=== PATIENT | female | born 1975 | race Caucasian/White ===

== ENCOUNTER 2017-02-08 22:58 | Emergency (ER) | payer OTHER ==
[2017-02-08 23:05] VITALS: BP 159/92; PULSE 99; TEMP 98.5; BMI 40.2
--- NOTE | 2017-02-09 00:31 | PDOC ---
History of Present Illness - History of Present Illness Initial Comments: 02/09/17 00:38 Patient is a 41 year old female with no significant medical hx who is presenting to the ED with scattered welts to her extremities for the past few months. The patient states shes been having intermittent breakouts of welts and hives that are red and itching. She is reporting large, itching welts beneath her upper arms bilaterally at this time, but have also appeared scattered throughout her body in the past. The patient denies any known allergies. Denies new detergents, foods, clothing, or soaps. Denies any fever or chills. <Emma Osborne - Last Filed: 02/09/17 00:38> <Lizbeth Hodge - Last Filed: 02/09/17 00:42> - General Chief Complaint: Rash Stated Complaint: RASH Time Seen by Provider: 02/08/17 23:34 Past History <Emma Osborne - Last Filed: 02/09/17 00:38> - Past Medical History Anemia: Yes (IN THE PAST) Asthma: No Cancer: No Cardiac Disorders: No CVA: No COPD: No CHF: No Dementia: No Diabetes: No GI Disorders: No Disorders: No HTN: No Hypercholesterolemia: No Liver Disease: No Seizures: No Thyroid Disease: No - Surgical History Abdominal Surgery: No Appendectomy: No Cardiac Surgery: No Cholecystectomy: No Lung Surgery: No Neurologic Surgery: No Orthopedic Surgery: No - Psycho/Social/Smoking Cessation Hx Suicidal Ideation: No Smoking History: Never smoked Hx Alcohol Use: No Drug/Substance Use Hx: No Substance Use Type: None Hx Substance Use Treatment: No <Lizbeth Hodge - Last Filed: 02/09/17 00:42> - Past Medical History Allergies/Adverse Reactions: Allergies Allergy/AdvReac Type Severity Reaction Status Date / Time No Known Drug Allergies Allergy Verified 02/08/17 23:02 Home Medications: Ambulatory Orders Buspirone HCl [Buspar -] 5 mg PO DAILY 02/18/15 Meloxicam [Mobic -] 15 mg PO DAILY 02/18/15 Methylprednisolone [Medrol Dose [place]] 4 mg PO ASDIR #21 tablet 02/09/17 Review of Systems - Review of Systems Comments:: 02/09/17 00:40 CONSTITUTIONAL: Absent: fever, no chills, no fatigue EYES: Absent: visual changes ENT: Absent: ear pain, no sore throat CARDIOVASCULAR: Absent: chest pain, no palpitations RESPIRATORY: Absent: cough, no SOB GI: Absent: abdominal pain, no nausea, no vomiting, no constipation, no diarrhea GENITOURINARY: Absent: dysuria, no frequency, no hematuria MUSKULOSKELETAL: Absent: back pain, no arthralgia, no myalgia SKIN: Present: scattered red itching welts and urticaria NEURO: Absent: headache <Emma Osborne - Last Filed: 02/09/17 00:38> *Physical Exam - Vital Signs Last Vital Signs Temp Pulse Resp BP Pulse Ox 98.5 F 99 H 18 159/92 99 02/08/17 23:03 02/08/17 23:03 02/08/17 23:03 02/08/17 23:03 02/08/17 23:03 - Physical Exam Comments: 02/09/17 00:40 GENERAL: Well-appearing, well-nourished. No apparent distress. HEENT: Normocephalic, atraumatic. PERRL, EOM intact. CARDIOVASCULAR: Normal S1, S2. Regular rate and rhythm. PULMONARY: Clear to auscultation bilaterally. ABDOMEN: Soft, non-distended, non-tender. EXTREMITIES: Normal ROM in all four extremities. No gross deformities. SKIN: Warm, dry. Large welts that are raised and erythematous with areas of sharp demarcation on extremities. No vesicles, no weeping lesions, no signs of indurated cellulitis, no streaking, no purulence. NEUROLOGICAL: No focal neurological deficits. <Emma Osborne - Last Filed: 02/09/17 00:38> - Vital Signs Last Vital Signs Temp Pulse Resp BP Pulse Ox 98.5 F 99 H 18 159/92 99 02/08/17 23:03 02/08/17 23:03 02/08/17 23:03 02/08/17 23:03 02/08/17 23:03 <Lizbeth Hodge - Last Filed: 02/09/17 00:42> *DC/Admit/Observation/Transfer - Attestations Scribe Attestion: 02/09/17 00:42 Documentation prepared by Emma Osborne, acting as medical lab technician for Lizbeth Hodge MD. <Emma Osborne - Last Filed: 02/09/17 00:38> <Lizbeth Hodge - Last Filed: 02/09/17 00:42> Diagnosis at time of Disposition: Acute urticaria, Hives Hypersensitivity Qualifiers: Encounter type: initial encounter Qualified Code(s): T78.40XA - Allergy, unspecified, initial encounter - Discharge Dispostion Disposition: HOME - Prescriptions Prescriptions: Methylprednisolone [Medrol Dose [place]] 4 mg PO ASDIR #21 tablet - Referrals Referrals: Lay Bains [Primary Care Provider] - Mar Roberts MD [Staff Physician] - - Patient Instructions Printed Discharge Instructions: DI for General Allergic Reactions, DI for Itching, DI for Hives Additional Instructions: -please see a entry specialist -try to keep skin moist -take benadryl at night to help relieve the itching
== END 2017-02-09 01:14 | disposition home or self-care (01) ==
LOC: JER 22:58
DX: L50.0 Allergic urticaria (principal); T78.40XA Allergy, unspecified, initial encounter
CPT/HCPCS: 99282-25